=== PATIENT | female | born 1985 | race Caucasian/White ===

== ENCOUNTER 2021-12-27 00:56 | Emergency (ER) | payer MEDICAID ==
[~2021-12-27] VITALS: Ht 154.9 cm; Wt 54.4 kg
[2021-12-27 01:10] VITALS: BP_SYST 123
[2021-12-27] MEDS ORDERED: IBUPROFEN 600 MG TABLET PO ONE (02:15)
[2021-12-27] MEDS ORDERED: AMOXICILLIN/CLAVULANATE POTASSIUM 875 MG TABLET PO ONE (02:15)
[2021-12-27] MEDS ORDERED: IBUP-1969 PO (02:34)
[2021-12-27] MEDS ORDERED: AMOX-426 PO (02:34)
[2021-12-27] MEDS ORDERED: OXYM15MI9 NS (02:34)
[2021-12-27] MEDS ORDERED: HYDR-3917 PO (02:34)
[2021-12-27 03:20] VITALS: BP_SYST 135
[2021-12-27] MEDS ORDERED: KETAMINE 30 MG/3 ML SYRINGE ONE (05:33)
== END 2021-12-27 03:20 | disposition home or self-care (01) ==
LOC: SED 00:56
DX: H66.012 Acute suppurative otitis media with spontaneous rupture of ear drum, left ear (principal); J45.909 Unspecified asthma, uncomplicated
CPT/HCPCS: 99283

== ENCOUNTER 2022-06-11 00:49 | Emergency (ER) | payer MEDICAID ==
[~2022-06-11] VITALS: Ht 154.9 cm; Wt 54.9 kg
[~2022-06-11 00:49] MED LIST: AMOX-426 PO; HYDR-3917 PO; IBUP-1969 PO; OXYM15MI9 NS
[2022-06-11 01:00] VITALS: BP_SYST 135
--- NOTE | 2022-06-11 01:00 | NUR ---
Patient triaged and placed in waiting room. VSS and patient appears in no acute distress at this time. Accompanied by fam member, awaiting available bed, and MD notified of need for MSE.
--- NOTE | 2022-06-11 02:29 | NUR ---
Patient to ER bed 1 to gown for evaluation. Side rails up. Report given to Carine CAREY.
--- NOTE | 2022-06-11 02:36 | NUR ---
BIB AMB WITH CHARGE NURSE. C/O LEFT KNEE PAIN X1 WEEK. "SLIPPED GOING UP STAIRS" OTC MEDS AT HOME NOT HELPING. PAIN GETTING WORSE
--- NOTE | 2022-06-11 02:39 | NUR ---
XRAY AT BEDSIDE
--- NOTE | 2022-06-11 02:59 | NUR ---
KAI RN DR. SANTIAGO AT BEDSIDE EXAM/ EVAL
[2022-06-11] MEDS ORDERED: MORPHINE 4 MG INJ. 4 MG/ML VIAL ONE (03:15)
[2022-06-11] MEDS ORDERED: MORPHINE 4 MG INJ. 4 MG/ML VIAL IM ONE (03:15)
--- NOTE | 2022-06-11 03:46 | NUR ---
PT STATES PAIN LEVAL 3/10 AT THIS TIME. BOYFRIEND AT BEDSIDE
[2022-06-11] MEDS ORDERED: IBUP-1969 PO (04:56)
[2022-06-11 05:14] VITALS: BP_SYST 110
--- NOTE | 2022-06-11 05:15 | NUR ---
PT STABLE FOR D/C TO HOME WITH BOYFRIEND. PT VERBALIZES UDERSTANDING OF AFTERCARE INSCRUTCTIONS. DEMONSTARATED GOOD PREFORMANCE ON CRUTCH AMB WITH KNEE SUPPORT IN PLACE. TO LOBBY AMB ON CRUTCHES WITH ALL PAPERWORK IN HAND
== END 2022-06-11 05:14 | disposition home or self-care (01) ==
LOC: SED 00:49
DX: M25.562 Pain in left knee (principal); J45.909 Unspecified asthma, uncomplicated; Z79.899 Other long term (current) drug therapy
CPT/HCPCS: 99283; 73564; 96372; J2270

== ENCOUNTER 2022-12-15 02:14 | Emergency (ER) | payer MEDICAID ==
[~2022-12-15] VITALS: Ht 157.5 cm; Wt 53.1 kg
[2022-12-15 02:34] VITALS: BP_SYST 142
--- NOTE | 2022-12-15 02:42 | NUR ---
ER Dr.DELA SALAZAR at bedside examining patient.
--- NOTE | 2022-12-15 03:30 | NUR ---
PT IS AA&OX4. AFEBRILE. NAD.PER PT, SHE TRIPPED & FELL, SUSTAINED LEFT POSTERIOR HEAD BUMP W/ SLIGHT BLEEDING NOTED. NEURO CHECK DONE, NO NEURO DEFICIT. PERRLA. NO N/V NOTED. AMBULATORY W/ STEADY GAIT. SAFE & HAZARD FREE ENVIRONMENT PROVIDED.
[2022-12-15] MEDS ORDERED: ACET-2634 PO (03:53)
--- NOTE | 2022-12-15 04:50 | NUR ---
Patient given written and verbal discharge instructions and verbalizes understanding. ER MD DR. SAMANIEGO discussed with patient the results and treatment provided. Patient in stable condition. ID arm band removed. Rx of APAP given. Patient educated on pain management and to follow up with PMD. Pain Scale 0/10. Opportunity for questions provided and answered. Medication side effect fact sheet provided.
== END 2022-12-15 04:50 | disposition home or self-care (01) ==
LOC: SED 02:14
DX: S01.00XA Unspecified open wound of scalp, initial encounter (principal); J45.909 Unspecified asthma, uncomplicated; Z79.899 Other long term (current) drug therapy; W18.30XA Fall on same level, unspecified, initial encounter; Y93.89 Activity, other specified; Y92.89 Other specified places as the place of occurrence of the external cause; Y99.8 Other external cause status
CPT/HCPCS: 70450-TC; 76376; 81025; 99284

== ENCOUNTER 2023-04-14 03:19 | Emergency (ER) | payer MEDICAID ==
[~2023-04-14] VITALS: Ht 154.9 cm; Wt 54.4 kg
[~2023-04-14 03:19] MED LIST changes: +ACET-2634 PO
[2023-04-14 03:35] VITALS: BP_SYST 118
[2023-04-14] MEDS ORDERED: IBUPROFEN 600 MG TABLET PO ONE (04:15)
[2023-04-14] MEDS ORDERED: IBUP-1969 PO (04:37)
[2023-04-14 04:46] VITALS: BP_SYST 110
== END 2023-04-14 04:46 | disposition home or self-care (01) ==
LOC: SED 03:19
DX: S60.221A Contusion of right hand, initial encounter (principal); J45.909 Unspecified asthma, uncomplicated; Z79.899 Other long term (current) drug therapy; W18.39XA Other fall on same level, initial encounter; Y93.89 Activity, other specified; Y92.89 Other specified places as the place of occurrence of the external cause; Y99.8 Other external cause status
CPT/HCPCS: 99283

== ENCOUNTER 2024-07-17 06:07 | Emergency (ER) | payer MEDICAID ==
[~2024-07-17] VITALS: Ht 154.9 cm; Wt 49.9 kg
[~2024-07-17 06:07] MED LIST changes: +CHLO25CA11 PO
[2024-07-17 06:18] VITALS: BP_SYST 131; PULSE 82; RESP 18; TEMP 96.9; O2SAT 100
[2024-07-17] MEDS ORDERED: NAPR-688 PO (09:02)
[2024-07-17] MEDS: HYDROcodone/ACETAMIN 5-325 MG TAB (NORCO/ VICODIN) PO ONE (09:12)
[2024-07-17 09:16] VITALS: BP_SYST 131; PULSE 89; RESP 16; TEMP 98.1; O2SAT 99
== END 2024-07-17 09:17 | disposition home or self-care (01) ==
LOC: SED 06:07
DX: S80.01XA Contusion of right knee, initial encounter (principal); J45.909 Unspecified asthma, uncomplicated; Z79.899 Other long term (current) drug therapy; Z79.2 Long term (current) use of antibiotics; Z91.011 Allergy to milk products; W01.0XXA Fall on same level from slipping, tripping and stumbling without subsequent striking against object, initial encounter; Y93.89 Activity, other specified; Y92.89 Other specified places as the place of occurrence of the external cause; Y99.8 Other external cause status
CPT/HCPCS: 73564; 99283